=== PATIENT | female | born 1980 | race Native Hawaiian/Other Pacific Islander ===

== ENCOUNTER 2016-06-02 19:38 | Emergency (ER) | payer OTHER ==
[~2016-06-02] VITALS: Ht 160 cm; Wt 83.9 kg
[~2016-06-02 19:38] MED LIST: GABA300C2 PO; HYDR10TA47 PO; NEXIUM 24HR20 MG PO; XANAX XR1 MG PO
[2016-06-02 20:19] LABS: PLATELET COUNT 180 K/uL (152-353)
[2016-06-02 20:28] LABS: POTASSIUM 3.6 mmol/L (3.6-5.2); SODIUM 136 mmol/L (136-145)
[2016-06-02 21:15] VITALS: BP 106/64; TEMP 98.3
== END 2016-06-02 21:16 | disposition home or self-care (01) ==
LOC: ED 19:38
DX: S91.331A Puncture wound without foreign body, right foot, initial encounter (principal); L03.818 Cellulitis of other sites; W54.0XXA Bitten by dog, initial encounter; Y92.488 Other paved roadways as the place of occurrence of the external cause
CPT/HCPCS: 36415; 80053; 85027; 96365; 99283; J0696

== ENCOUNTER 2016-09-19 02:25 | Emergency (ER) | payer OTHER ==
[~2016-09-19] VITALS: Ht 157.5 cm; Wt 79.4 kg
[2016-09-19 03:05] LABS: PLATELET COUNT 220 K/uL (152-353)
[2016-09-19 03:09] LABS: POTASSIUM 3.7 mmol/L (3.6-5.2); SODIUM 140 mmol/L (136-145)
[2016-09-19 06:31] VITALS: BP 120/87; TEMP 99
== END 2016-09-19 06:38 | disposition home or self-care (01) ==
LOC: ED 02:25
DX: K80.80 Other cholelithiasis without obstruction (principal); K29.60 Other gastritis without bleeding; B96.81 Helicobacter pylori [H. pylori] as the cause of diseases classified elsewhere
CPT/HCPCS: 36415; 80053; 85027; 86318; 96374; 96375; 99284; J1885; J2405; Q9963

== ENCOUNTER 2016-09-29 17:41 | Emergency (ER) | payer OTHER ==
[~2016-09-29] VITALS: Ht 157.5 cm; Wt 72.6 kg
[2016-09-29 17:50] VITALS: BP 111/81; TEMP 98.5
== END 2016-09-29 19:02 | disposition home or self-care (01) ==
LOC: ED 17:41
DX: L76.22 Postprocedural hemorrhage of skin and subcutaneous tissue following other procedure (principal)
CPT/HCPCS: 99282

== ENCOUNTER 2020-07-16 23:02 | Emergency (ER) | payer OTHER ==
[~2020-07-16] VITALS: Ht 157.5 cm; Wt 60.8 kg
[2020-07-17 00:21] LABS: POTASSIUM 2.7 mmol/L (3.6-5.2)
[2020-07-17 00:40] LABS: PLATELET COUNT 193 K/uL (152-353)
[2020-07-17 01:55] VITALS: BP 101/49; TEMP 98.5
== END 2020-07-17 02:19 | disposition home or self-care (01) ==
LOC: ED 23:02
PROVIDERS: Hospitalist
DX: L03.115 Cellulitis of right lower limb (principal)
CPT/HCPCS: 80053; 83605; 85027; 87040; 96365; 96375; 99284; J1885; J3370; Q0177